=== PATIENT | male | born 1965 | race Two or more races ===

== ENCOUNTER 2023-03-27 06:05 | Day surgery (SDC) | payer OTHER | END 2023-03-27 08:55 | disposition home or self-care (01) | LOC: AMB-ENDOS 06:05 | PROVIDERS: ATTEND Surgery | DX: D12.2 Benign neoplasm of ascending colon (principal); K57.30 Diverticulosis of large intestine without perforation or abscess without bleeding; Z20.822 Contact with and (suspected) exposure to COVID-19; Z88.6 Allergy status to analgesic agent ==